=== PATIENT | male | born 1960 | race Two or more races ===

== ENCOUNTER 2022-03-30 20:18 | Inpatient (IN) | payer MEDICAID, OTHER ==
[~2022-03-30] VITALS: Ht 175.3 cm; Wt 66.5 kg
[2022-03-30] MEDS ORDERED: ACETAMINOPHEN 500 MG TAB PO ONE (21:00)
[2022-03-30 22:19] LABS: Basophils # (auto) 0 10 ^3/uL (0-0.2); Basophils % (auto) 0.3 % (0.0-2.0); Eosinophils # (auto) 0 10 ^3/uL (0-0.8); Hemoglobin 13.2 g/dL (13.5-17.5); Lymphocytes # (auto) 0.4 10 ^3/uL (0.4-5.4); Lymphocytes % (auto) 4.9 % (10.0-50.0); Monocytes # (auto) 0.8 10 ^3/uL (0-1.3); Monocytes % (auto) 9.9 % (0.0-12.0); Neutrophils % (auto) 84.9 % (37.0-80.0)
[2022-03-30 22:20] LABS: Hematocrit 40.2 % (41.0-53.0); Mean Corpuscular Hemoglobin 26.7 pg (28.0-32.0); Mean Corpuscular Hgb Conc. 32.9 g/dL (32.0-36.0); Mean Corpuscular Volume 81.4 fL (80.0-100.0); Neutrophils # (auto) 6.6 10 ^3/uL (1.6-8.6); Red Blood Cells 4.94 10^6/uL (4.5-5.90); Red Cell Distribution Width 13.8 % (11.8-14.3); White Blood Cell 7.8 10^3/uL (4.4-10.8)
[2022-03-30 22:24] LABS: Albumin 3.6 g/dL (3.4-5.0); Calcium 8.4 mg/dL (8.5-10.1); Magnesium 2.3 mg/dL (1.6-2.6); Potassium 3.4 mmol/L (3.5-5.1)
[2022-03-30 22:28] LABS: BUN/Creatinine Ratio 16.2; Bilirubin, Total 0.4 mg/dL (0.2-1.0); Total Protein 7.7 g/dL (6.4-8.2)
[2022-03-30] MEDS ORDERED: SODIUM CHLORIDE 0.9% 1,000 ML IV ONE (22:45)
[2022-03-30] MEDS ORDERED: cefTRIAXone 1GM/50ML D5W 50 ML IV ONE (23:30)
[2022-03-31] VITALS (7 sets, daily range): BP systolic 114–133; BP diastolic 56–84
[2022-03-31] MEDS ORDERED: DOCUSATE SOD 100 MG CAP PO PRN (01:00)
[2022-03-31] MEDS ORDERED: ONDANSETRON HCL 4 MG/2 ML VIAL IV PRN (01:00)
[2022-03-31] MEDS ORDERED: HYDROcodone-ACET 5/325MG TAB PO PRN (01:00)
[2022-03-31] MEDS ORDERED: POTASSIUM CHL 20 Meq TABLET PO ONE (01:30)
[2022-03-31] MEDS ORDERED: MORPHINE SULFATE INJ 2 MG/ml SYRG IV PRN (02:15)
[2022-03-31] MEDS ORDERED: NITROGLYCERIN 0.4 MG SL TAB SL PRN (02:15)
[2022-03-31] MEDS ORDERED: LORazepam 0.5 MG TAB PO PRN (05:30)
[2022-03-31 08:43] LABS: Basophils # (auto) 0 10 ^3/uL (0-0.2); Basophils % (auto) 0.4 % (0.0-2.0); Eosinophils # (auto) 0 10 ^3/uL (0-0.8); Hematocrit 40.7 % (41.0-53.0); Hemoglobin 13.2 g/dL (13.5-17.5); Lymphocytes # (auto) 0.9 10 ^3/uL (0.4-5.4); Lymphocytes % (auto) 12.3 % (10.0-50.0); Mean Corpuscular Hemoglobin 27.1 pg (28.0-32.0); Mean Corpuscular Hgb Conc. 32.4 g/dL (32.0-36.0); Mean Corpuscular Volume 83.8 fL (80.0-100.0); Monocytes # (auto) 1.1 10 ^3/uL (0-1.3); Monocytes % (auto) 15.4 % (0.0-12.0); Neutrophils # (auto) 5.3 10 ^3/uL (1.6-8.6); Neutrophils % (auto) 71.9 % (37.0-80.0); Nucleated Red Blood Cells % 0.1 %; Red Blood Cells 4.85 10^6/uL (4.5-5.90); Red Cell Distribution Width 13.9 % (11.8-14.3); White Blood Cell 7.4 10^3/uL (4.4-10.8)
[2022-03-31 08:59] LABS: Albumin 3.1 g/dL (3.4-5.0); Calcium 8.1 mg/dL (8.5-10.1); Potassium 3.8 mmol/L (3.5-5.1)
[2022-03-31 09:03] LABS: BUN/Creatinine Ratio 17.5; Bilirubin, Total 0.4 mg/dL (0.2-1.0); Total Protein 6.9 g/dL (6.4-8.2)
[2022-03-31] MEDS: FAMOTIDINE (10MG/ML) 2ML VL IV SCH ×2 (09:46→22:09)
[2022-03-31] MEDS: cefTRIAXone 1GM/50ML D5W 50 ML IV SCH (09:46)
[2022-03-31] MEDS: ENOXAPARIN SOD 40 MG/0.4 ML SYRINGE SC SCH (09:47)
[2022-03-31] MEDS: ACETAMINOPHEN 325 MG TAB PO PRN ×2 (09:47→22:08)
[2022-03-31] MEDS ORDERED: MEMANTINE HCL 5 MG TAB PO SCH (10:00)
[2022-03-31] MEDS ORDERED: REMDESIVIR PER PHARMACY 0 ML IV SCH (10:45)
[2022-03-31] MEDS ORDERED: MELA3TAB27 PO (11:08)
[2022-03-31] MEDS ORDERED: OLAN1TAB19 PO (11:08)
[2022-03-31] MEDS ORDERED: TAMS0.4C36 PO (11:08)
[2022-03-31] MEDS ORDERED: AMLO-489 PO (11:08)
[2022-03-31] MEDS ORDERED: PANT1INJ3 IV (11:08)
[2022-03-31] MEDS ORDERED: LISI20TA28 PO (11:08)
[2022-03-31] MEDS ORDERED: DONE5TAB80 PO (11:08)
[2022-03-31] MEDS ORDERED: CLON0.5T3 GT (11:08)
[2022-03-31] MEDS ORDERED: TRAZ-181 PO (11:08)
[2022-03-31 14:31] LABS: Urine Bacteria NONE SEEN /hpf (None Seen); Urine Blood TRACE /uL (Negative); Urine Specific Gravity 1.014 (1.001-1.035); Urine WBC 2 /hpf (0 - 3)
[2022-03-31] MEDS ORDERED: REMDESIVIR 200 MG in NS 210ml LOADING DOSE ADULT IV ONE (15:00)
[2022-03-31] MEDS: TAMSULOSIN HYDROCHLORIDE 0.4 MG CAP PO SCH (16:30)
[2022-03-31] MEDS: BUDESONIDE (INHALATION) 180 MCG IH IN SCH (22:00)
[2022-03-31] MEDS ORDERED: MELATONIN 5 MG PO SCH (22:00)
[2022-03-31] MEDS ORDERED: clonazePAM 0.5 MG TAB GT SCH (22:00)
[2022-03-31] MEDS: MEMANTINE HCL 5 MG TAB PO SCH (22:08)
[2022-03-31] MEDS: ASCORBIC ACID 500 MG TAB PO SCH (22:09)
[2022-04-01 05:00] VITALS: BP 133/97
[2022-04-01 05:00] LABS: Basophils # (auto) 0 10 ^3/uL (0-0.2); Basophils % (auto) 0.3 % (0.0-2.0); Eosinophils # (auto) 0 10 ^3/uL (0-0.8); Hematocrit 44.8 % (41.0-53.0); Hemoglobin 14.6 g/dL (13.5-17.5); Lymphocytes # (auto) 1.2 10 ^3/uL (0.4-5.4); Lymphocytes % (auto) 19.6 % (10.0-50.0); Mean Corpuscular Hemoglobin 27.3 pg (28.0-32.0); Mean Corpuscular Hgb Conc. 32.6 g/dL (32.0-36.0); Mean Corpuscular Volume 83.7 fL (80.0-100.0); Monocytes # (auto) 0.5 10 ^3/uL (0-1.3); Monocytes % (auto) 8.4 % (0.0-12.0); Neutrophils # (auto) 4.4 10 ^3/uL (1.6-8.6); Neutrophils % (auto) 71.7 % (37.0-80.0); Nucleated Red Blood Cells % 0.1 %; Red Blood Cells 5.35 10^6/uL (4.5-5.90); Red Cell Distribution Width 14.3 % (11.8-14.3); White Blood Cell 6.1 10^3/uL (4.4-10.8)
[2022-04-01 05:15] LABS: Potassium 4.3 mmol/L (3.5-5.1)
[2022-04-01 05:19] LABS: Albumin 3.2 g/dL (3.4-5.0); BUN/Creatinine Ratio 19.5; Calcium 8.4 mg/dL (8.5-10.1)
[2022-04-01 05:22] LABS: Bilirubin, Total 0.6 mg/dL (0.2-1.0); Total Protein 7.5 g/dL (6.4-8.2)
[2022-04-01 09:36] VITALS: BP 129/82
[2022-04-01] MEDS: ZINC SULFATE 220mg CAP or TAB PO SCH (10:00)
[2022-04-01] MEDS: DONEPEZIL HYDROCHLORIDE 5 MG TAB PO SCH (10:00)
[2022-04-01] MEDS: OLANZAPINE 10 MG PO SCH (10:00)
[2022-04-01] MEDS: ASCORBIC ACID 500 MG TAB PO SCH ×2 (10:00→21:35)
[2022-04-01] MEDS: MEMANTINE HCL 5 MG TAB PO SCH ×2 (10:00→21:45)
[2022-04-01] MEDS ORDERED: traZODone HCL 50 MG TAB PO SCH (10:00)
[2022-04-01] MEDS: ASPirin-EC 81 mg tab PO SCH (10:00)
[2022-04-01] MEDS: LISINOPRIL 20 MG TAB PO SCH (10:00)
[2022-04-01] MEDS: amLODIPine BESYLATE 5 MG TAB PO SCH (10:00)
[2022-04-01] MEDS: BUDESONIDE (INHALATION) 180 MCG IH IN SCH (10:00)
[2022-04-01] MEDS: CHOLECALCIFEROL (VITD3) 1,000UNIT=25mCg TAB PO SCH (10:00)
[2022-04-01] MEDS: cefTRIAXone 1GM/50ML D5W 50 ML IV SCH (10:46)
[2022-04-01] MEDS: PANTOPRAZOLE 40 MG/10 ML VIAL INJ IV SCH (10:46)
[2022-04-01] MEDS: FAMOTIDINE (10MG/ML) 2ML VL IV SCH ×2 (10:46→21:34)
[2022-04-01] MEDS: ENOXAPARIN SOD 40 MG/0.4 ML SYRINGE SC SCH (10:47)
[2022-04-01] MEDS ORDERED: clonazePAM 0.5 MG TAB PO PRN (11:30)
[2022-04-01 13:00] VITALS: BP 115/69
[2022-04-01] MEDS: ACETAMINOPHEN 325 MG TAB PO PRN (13:29)
[2022-04-01] MEDS: REMDESIVIR 100mg 100 MG in SODIUM CHL 0.9% 230 ML IV SCH (15:36)
[2022-04-01 17:42] VITALS: BP 107/71
[2022-04-01] MEDS: TAMSULOSIN HYDROCHLORIDE 0.4 MG CAP PO SCH (17:58)
[2022-04-01 21:57] VITALS: BP 110/78
[2022-04-02 04:52] LABS: Potassium 3.7 mmol/L (3.5-5.1)
[2022-04-02 05:00] VITALS: BP 112/69
[2022-04-02 05:00] LABS: Albumin 2.9 g/dL (3.4-5.0); Bilirubin, Total 0.5 mg/dL (0.2-1.0); Calcium 8.1 mg/dL (8.5-10.1); Total Protein 6.8 g/dL (6.4-8.2)
[2022-04-02 09:00] VITALS: BP 97/61
[2022-04-02] MEDS: OLANZAPINE 10 MG PO SCH (10:00)
[2022-04-02] MEDS: LISINOPRIL 20 MG TAB PO SCH (10:00)
[2022-04-02] MEDS: amLODIPine BESYLATE 5 MG TAB PO SCH (10:00)
[2022-04-02] MEDS: ASCORBIC ACID 500 MG TAB PO SCH ×2 (10:05→21:44)
[2022-04-02] MEDS: MEMANTINE HCL 5 MG TAB PO SCH ×2 (10:05→21:44)
[2022-04-02] MEDS: cefTRIAXone 1GM/50ML D5W 50 ML IV SCH (10:05)
[2022-04-02] MEDS: ASPirin-EC 81 mg tab PO SCH (10:05)
[2022-04-02] MEDS: ZINC SULFATE 220mg CAP or TAB PO SCH (10:06)
[2022-04-02] MEDS: PANTOPRAZOLE 40 MG/10 ML VIAL INJ IV SCH (10:06)
[2022-04-02] MEDS: FAMOTIDINE (10MG/ML) 2ML VL IV SCH ×2 (10:06→21:44)
[2022-04-02] MEDS: CHOLECALCIFEROL (VITD3) 1,000UNIT=25mCg TAB PO SCH (10:07)
[2022-04-02] MEDS: ENOXAPARIN SOD 40 MG/0.4 ML SYRINGE SC SCH (10:07)
[2022-04-02] MEDS: DONEPEZIL HYDROCHLORIDE 5 MG TAB PO SCH (10:07)
[2022-04-02] MEDS ORDERED: hydrALAZINE HCL 20 MG/ML VL IV PRN (11:30)
[2022-04-02 13:00] VITALS: BP 94/58
[2022-04-02 17:00] VITALS: BP 102/63
[2022-04-02] MEDS: REMDESIVIR 100mg 100 MG in SODIUM CHL 0.9% 230 ML IV SCH (17:15)
[2022-04-02] MEDS: TAMSULOSIN HYDROCHLORIDE 0.4 MG CAP PO SCH (18:22)
[2022-04-02 22:00] VITALS: BP 109/71
[2022-04-03 05:00] VITALS: BP 99/60
[2022-04-03 06:10] LABS: Potassium 3.4 mmol/L (3.5-5.1)
[2022-04-03 06:13] LABS: Albumin 2.8 g/dL (3.4-5.0); BUN/Creatinine Ratio 32.3; Calcium 7.7 mg/dL (8.5-10.1)
[2022-04-03 06:16] LABS: Bilirubin, Total 0.5 mg/dL (0.2-1.0); Total Protein 6.3 g/dL (6.4-8.2)
[2022-04-03 08:00] VITALS: BP 100/60
[2022-04-03 09:00] VITALS: BP 100/60
[2022-04-03] MEDS: OLANZAPINE 10 MG PO SCH (10:00)
[2022-04-03] MEDS: cefTRIAXone 1GM/50ML D5W 50 ML IV SCH (10:15)
[2022-04-03] MEDS: FAMOTIDINE (10MG/ML) 2ML VL IV SCH ×2 (10:16→22:25)
[2022-04-03] MEDS: PANTOPRAZOLE 40 MG/10 ML VIAL INJ IV SCH (10:16)
[2022-04-03] MEDS: ZINC SULFATE 220mg CAP or TAB PO SCH (10:17)
[2022-04-03] MEDS: DONEPEZIL HYDROCHLORIDE 5 MG TAB PO SCH (10:17)
[2022-04-03] MEDS: ASPirin-EC 81 mg tab PO SCH (10:17)
[2022-04-03] MEDS: MEMANTINE HCL 5 MG TAB PO SCH ×2 (10:18→22:25)
[2022-04-03] MEDS: ASCORBIC ACID 500 MG TAB PO SCH ×2 (10:18→22:25)
[2022-04-03] MEDS: ENOXAPARIN SOD 40 MG/0.4 ML SYRINGE SC SCH (10:18)
[2022-04-03] MEDS: CHOLECALCIFEROL (VITD3) 1,000UNIT=25mCg TAB PO SCH (10:18)
[2022-04-03 13:00] VITALS: BP 98/71
[2022-04-03] MEDS: REMDESIVIR 100mg 100 MG in SODIUM CHL 0.9% 230 ML IV SCH (15:58)
[2022-04-03 17:00] VITALS: BP 123/68
[2022-04-03] MEDS: TAMSULOSIN HYDROCHLORIDE 0.4 MG CAP PO SCH (18:58)
[2022-04-03 22:00] VITALS: BP 120/69
[2022-04-04 04:57] LABS: Basophils # (auto) 0 10 ^3/uL (0-0.2); Basophils % (auto) 0.2 % (0.0-2.0); Eosinophils # (auto) 0 10 ^3/uL (0-0.8); Eosinophils % (auto) 0.4 % (0.0-7.0); Hematocrit 43.2 % (41.0-53.0); Hemoglobin 14.4 g/dL (13.5-17.5); Lymphocytes # (auto) 1.6 10 ^3/uL (0.4-5.4); Lymphocytes % (auto) 33.3 % (10.0-50.0); Mean Corpuscular Hemoglobin 27.1 pg (28.0-32.0); Mean Corpuscular Hgb Conc. 33.3 g/dL (32.0-36.0); Mean Corpuscular Volume 81.3 fL (80.0-100.0); Monocytes # (auto) 0.6 10 ^3/uL (0-1.3); Monocytes % (auto) 12.5 % (0.0-12.0); Neutrophils # (auto) 2.5 10 ^3/uL (1.6-8.6); Neutrophils % (auto) 53.6 % (37.0-80.0); Nucleated Red Blood Cells % 0.4 %; Red Blood Cells 5.31 10^6/uL (4.5-5.90); White Blood Cell 4.7 10^3/uL (4.4-10.8)
[2022-04-04 05:00] VITALS: BP 126/77
[2022-04-04 05:16] LABS: BUN/Creatinine Ratio 33.9; Potassium 3.9 mmol/L (3.5-5.1)
[2022-04-04 05:19] LABS: Bilirubin, Total 0.4 mg/dL (0.2-1.0); Total Protein 6.7 g/dL (6.4-8.2)
[2022-04-04 09:00] VITALS: BP 109/75
[2022-04-04] MEDS: FAMOTIDINE (10MG/ML) 2ML VL IV SCH (09:50)
[2022-04-04] MEDS: ZINC SULFATE 220mg CAP or TAB PO SCH (09:50)
[2022-04-04] MEDS: MEMANTINE HCL 5 MG TAB PO SCH ×2 (09:50→22:33)
[2022-04-04] MEDS: PANTOPRAZOLE 40 MG/10 ML VIAL INJ IV SCH (09:50)
[2022-04-04] MEDS: ASPirin-EC 81 mg tab PO SCH (09:50)
[2022-04-04] MEDS: ASCORBIC ACID 500 MG TAB PO SCH ×2 (09:50→22:32)
[2022-04-04] MEDS: DONEPEZIL HYDROCHLORIDE 5 MG TAB PO SCH (09:50)
[2022-04-04] MEDS: ENOXAPARIN SOD 40 MG/0.4 ML SYRINGE SC SCH (09:50)
[2022-04-04] MEDS: OLANZAPINE 10 MG PO SCH (09:51)
[2022-04-04] MEDS: cefTRIAXone 1GM/50ML D5W 50 ML IV SCH (09:54)
[2022-04-04] MEDS: CHOLECALCIFEROL (VITD3) 1,000UNIT=25mCg TAB PO SCH (10:00)
[2022-04-04 13:00] VITALS: BP 136/79
[2022-04-04] MEDS: REMDESIVIR 100mg 100 MG in SODIUM CHL 0.9% 230 ML IV SCH (15:59)
[2022-04-04 16:39] VITALS: BP 136/79
[2022-04-04] MEDS: TAMSULOSIN HYDROCHLORIDE 0.4 MG CAP PO SCH (18:00)
[2022-04-04 22:00] VITALS: BP 139/80
[2022-04-05 05:00] VITALS: BP 128/74
[2022-04-05 07:23] LABS: Potassium 3.7 mmol/L (3.5-5.1)
[2022-04-05 07:25] LABS: BUN/Creatinine Ratio 24.6
[2022-04-05 07:28] LABS: Bilirubin, Total 0.6 mg/dL (0.2-1.0); Total Protein 6.9 g/dL (6.4-8.2)
[2022-04-05 08:48] VITALS: BP 127/70
[2022-04-05] MEDS: OLANZAPINE 10 MG PO SCH (10:00)
[2022-04-05] MEDS ORDERED: PANTOPRAZOLE 40 MG TAB PO SCH (10:00)
[2022-04-05] MEDS: cefTRIAXone 1GM/50ML D5W 50 ML IV SCH (12:48)
[2022-04-05] MEDS: MEMANTINE HCL 5 MG TAB PO SCH (12:48)
[2022-04-05] MEDS: ASCORBIC ACID 500 MG TAB PO SCH (12:48)
[2022-04-05] MEDS: DONEPEZIL HYDROCHLORIDE 5 MG TAB PO SCH (12:48)
[2022-04-05] MEDS: ENOXAPARIN SOD 40 MG/0.4 ML SYRINGE SC SCH (12:48)
[2022-04-05] MEDS: ASPirin-EC 81 mg tab PO SCH (12:49)
[2022-04-05] MEDS: CHOLECALCIFEROL (VITD3) 1,000UNIT=25mCg TAB PO SCH (12:49)
[2022-04-05] MEDS: ZINC SULFATE 220mg CAP or TAB PO SCH (12:49)
[2022-04-05 13:44] VITALS: BP 103/57
[2022-04-05 16:02] VITALS: BP 103/57
[2022-04-05 17:00] VITALS: BP 98/65
[2022-04-05] MEDS: TAMSULOSIN HYDROCHLORIDE 0.4 MG CAP PO SCH (18:00)
== END 2022-04-05 18:45 | DRG 137 ==
LOC: ER 20:18 → EDBD 20:18 → CENTRAL 03-31 02:12
PROVIDERS: ADMIT Nurse Practitioner Family; ATTEND Hospitalist
PROC: XW033E5 Introduction of Remdesivir Anti-infective into Peripheral Vein, Percutaneous Approach, New Technology Group 5 (ICD-10-PCS; principal; 2022-03-31)
DX: U07.1 COVID-19 (principal); J96.01 Acute respiratory failure with hypoxia; G30.9 Alzheimer's disease, unspecified; F02.80 Dementia in other diseases classified elsewhere, unspecified severity, without behavioral disturbance, psychotic disturbance, mood disturbance, and anxiety; J98.11 Atelectasis; K56.41 Fecal impaction; S09.90XA Unspecified injury of head, initial encounter; W18.39XA Other fall on same level, initial encounter; Y93.89 Activity, other specified; Y92.098 Other place in other non-institutional residence as the place of occurrence of the external cause; Y99.8 Other external cause status
CPT/HCPCS: 36415; 70450; 71045; 72125; 74176; 80053; 81001; 82728; 83615; 83735; 84484; 85025; 86141; 93005; 96361; 96365; 97110; 97163; 97530; C9113; G0378; J0696; J3490